=== PATIENT | female | born 1990 | race Caucasian/White ===

== ENCOUNTER 2017-09-21 00:01 | Emergency (ER) | payer SELFPAY ==
[~2017-09-21] VITALS: Ht 154.9 cm; Wt 65.5 kg
[~2017-09-21 00:01] MED LIST: PREN1TAB52 PO
[2017-09-21] MEDS ORDERED: NAPR250T4 PO (00:07)
[2017-09-21 02:07] VITALS: BP 128/77
== END 2017-09-21 02:40 | disposition home or self-care (01) ==
LOC: EMS 00:02
DX: M53.3 Sacrococcygeal disorders, not elsewhere classified (principal); Z33.1 Pregnant state, incidental; W01.0XXA Fall on same level from slipping, tripping and stumbling without subsequent striking against object, initial encounter; Y93.89 Activity, other specified; Y92.89 Other specified places as the place of occurrence of the external cause; Y99.8 Other external cause status
CPT/HCPCS: 99283